=== PATIENT | male | born 1955 | race Caucasian/White ===

== ENCOUNTER 2022-12-10 14:55 | Outpatient (RCR) | payer MEDICARE, SELFPAY ==
--- NOTE | 2022-12-05 12:48 | URNOTE ---
Request received for authorization for [facility] ([id number]). Prior authorization is not required as services are based on medical necessity and follow Medicare guidelines.
[2022-12-10 15:30] VITALS: BP 106/71; PULSE 71; RESP 18; TEMP 36.6; O2SAT 98
[2022-12-10 16:41] LABS: PSA Diagnostic* < 0.06 ng/mL (0.10-4.00)
== END 2023-06-08 23:59 | disposition home or self-care (01) ==
LOC: CCIC 14:55
PROVIDERS: Visit Provider Internal Medicine
DX: C61 Malignant neoplasm of prostate (principal)
CPT/HCPCS: 36415; 84153; 96401; J9217

== ENCOUNTER 2023-09-05 14:29 | Outpatient (CLI) | payer MEDICARE, SELFPAY ==
[2023-09-05 16:02] LABS: PSA Diagnostic* < 0.06 ng/mL (0.10-4.00)
[2023-09-07 18:44] LABS: Testosterone, Adult Male <3 ng/dL (300-720)
== END 2023-09-05 14:30 | disposition home or self-care (01) ==
LOC: LAB 14:31
PROVIDERS: PCP Internal Medicine; Visit Provider Physician Assistant
DX: R97.21 Rising PSA following treatment for malignant neoplasm of prostate (principal)
CPT/HCPCS: 36415; 84153; 84403